=== PATIENT | female | born 1960 | race Caucasian/White ===

== ENCOUNTER → 2016-06-02 | Outpatient (CLI) | payer BC ==
--- NOTE | 2016-06-02 13:12 | KCIC ---
PQRS STATEMENT One or more of the following individualized dose reduction techniques were utilized for this study: 1.Automated exposure control 2.Adjustment of the mA and/or kV according to patient size 3.Use of iterative reconstruction technique CT maxillofacial Indication: Reason For Study Reason: CHRONIC SINUSITIS / Spl. Instructions: / History: Recurrent pansinusitis, previous surgery to nose 1980s Technique: multiple contiguous axial images were obtained through the facial bones. Coronal and sagittal reformations were created. Findings:Soft tissues are within normal limits. There is a chronic nasal bone fracture. The septum deviates toward the right which could be congenital. Paranasal sinuses are clear apart from minimal mucosal thickening along the medial wall of the right maxillary sinus. Ostiomeatal units are patent, as are the frontal ethmoid recesses. Temporomandibular joints are intact. The globes and orbits are within normal limits. Parapharyngeal soft tissues are within normal limits. Impression: Negative CT maxillofacial study. Electronically signed by: Sarmda Martinez (Jun 02, 2016 13:10:45)
== END | disposition home or self-care (01) ==
LOC: KCIC CT 12:36
PROVIDERS: ATTEND Otolaryngology
DX: J32.9 Chronic sinusitis, unspecified (principal); S02.2XXA Fracture of nasal bones, initial encounter for closed fracture; X58.XXXA Exposure to other specified factors, initial encounter; Y93.89 Activity, other specified; Y92.89 Other specified places as the place of occurrence of the external cause; Y99.8 Other external cause status
CPT/HCPCS: 70486